=== PATIENT | female | born 1955 | race Caucasian/White ===

== ENCOUNTER 2017-07-11 12:08 | Inpatient (IN) | payer MEDICARE, MEDICAID ==
[~2017-07-11 12:08] MED LIST: CEFAZOLIN 1 GM INJ
[2017-07-11] MEDS ORDERED: MIDAZOLAM 1 MG/ML 2 ML INJ ×2 (14:42→14:56)
[2017-07-11] MEDS ORDERED: SUCCINYLCHOLINE CHLORIDE 100 MG/5 ML SYG IV (14:45)
[2017-07-11] MEDS ORDERED: LIDOCAINE 2% (SDV) 5 ML INJ (14:45)
[2017-07-11] MEDS ORDERED: ROCURONIUM 50 MG INJ (14:45)
[2017-07-11] MEDS ORDERED: PROPOFOL 20 ML (14:45)
[2017-07-11] MEDS ORDERED: ONDANSETRON 4 MG INJ (15:45)
[2017-07-11] MEDS ORDERED: FAMOTIDINE 20 MG INJ (15:45)
[2017-07-11] MEDS ORDERED: DEXAMETHASONE 4 MG/ML 1 ML INJ (15:45)
[2017-07-11] MEDS ORDERED: EPHEDrine SULFATE 50 MG/5 ML SYG (15:51)
[2017-07-11] MEDS ORDERED: NALOXONE (0.4 MG/ML) INJ IV (16:00)
[2017-07-11] MEDS ORDERED: LABETALOL HCL 20MG INJ (16:00)
[2017-07-11] MEDS ORDERED: hydrALAzine 20 MG INJ (16:07)
[2017-07-11] MEDS: CEFAZOLIN 1 GM INJ (16:43)
[2017-07-11] MEDS: GELATIN SIZE 100 SPONGE ×2 (16:44)
[2017-07-11] MEDS: HEPARIN 1000 UNITS/ML 10 ML INJ (16:44)
[2017-07-11] MEDS: THROMBIN 5000 UNIT VIAL ×2 (16:45)
[2017-07-11] MEDS ORDERED: HYDROmorphONE 2 MG/ML SYG (17:07)
[2017-07-11] MEDS ORDERED: SUGAMMADEX SODIUM 200 MG/2 ML VIAL IV ×2 (17:32→17:40)
[2017-07-11] MEDS ORDERED: HYDROmorphONE (0.2 MG/ML) 10ML SYG IV ×3 (18:12→18:30)
[2017-07-11] MEDS ORDERED: PROCHLORPERAZINE 10 MG INJ IV (18:30)
[2017-07-11] MEDS ORDERED: ONDANSETRON 4 MG INJ IV (18:30)
[2017-07-11] MEDS ORDERED: FENTAnyl 50 MCG/ML VIAL IV ×3 (18:30)
[2017-07-11] MEDS ORDERED: MEPERIDINE 25 MG INJ IV (18:30)
[2017-07-11] MEDS ORDERED: DIPHENHYDRAMINE 50 MG INJ IV (18:30)
[2017-07-11] MEDS ORDERED: MIDAZOLAM 1 MG/ML 2 ML INJ IV (18:30)
[2017-07-11] MEDS: HYDROmorphONE (0.2 MG/ML) 10ML SYG IV (18:36)
[2017-07-11] MEDS: HYDROmorphONE 0.2 MG/ML PCA IV (18:40)
[2017-07-11 19:14] LABS: ADD UMIC YES; UR ASCORBIC ACID NEGATIVE (NEGATIVE); UR BILIRUBIN (Dip) NEGATIVE (NEGATIVE); UR BLOOD (Dip) NEGATIVE (NEGATIVE); UR CLARITY SLIGHTLY CLOUDY (CLEAR); UR COLOR YELLOW (YELLOW); UR GLUCOSE (Dip) NEGATIVE (NEGATIVE); UR KETONES (Dip) NEGATIVE (NEGATIVE); UR LEUKOCYTE ESTERASE (Dip) NEGATIVE Leu/ul (NEGATIVE); UR NITRITE (Dip) NEGATIVE (NEGATIVE); UR RBC 9 /HPF (0-5); UR SPECIFIC GRAVITY (Dip) 1.019 (1.003-1.030); UR TOTAL PROTEIN (Dip) 2+ mg/dl (NEGATIVE); UR UROBILINOGEN (Dip) NEGATIVE (NEGATIVE); UR WBC 2 /HPF (0-5)
[2017-07-11] MEDS: CEFAZOLIN 1 GM/50 ML (PMX) 50 ML IVPB (23:07)
[2017-07-11] MEDS: LORAZEPAM 1 MG TAB PO (23:08)
[2017-07-12] MEDS: CEFAZOLIN 1 GM/50 ML (PMX) 50 ML IVPB ×4 (05:55→18:26)
[2017-07-12] MEDS: PANTOPRAZOLE (EC) 40 MG TAB PO (05:55)
[2017-07-12] MEDS: HYDROmorphONE 0.2 MG/ML PCA IV ×3 (06:44→19:45)
[2017-07-12] MEDS ORDERED: CEFAZOLIN 1 GM INJ (07:00)
[2017-07-12] MEDS ORDERED: SUCCINYLCHOLINE CHLORIDE 100 MG/5 ML SYG IV (07:00)
[2017-07-12 08:51] LABS: ADD MAN DIFF? NO
[2017-07-12 08:57] LABS: WHITE BLOOD COUNT 12.8 10^3/ul (4.8-10.8)
[2017-07-12 08:57] LABS: ABNORMAL IP MESSAGE 1; BASOPHILS % 0.2 % (0.0-2.0); EOSINOPHILS % 0.2 % (0.0-7.0); HEMATOCRIT 37.7 % (37.0-47.0); HEMOGLOBIN 12.9 g/dl (12.0-16.0); LYMPHOCYTES # 1.2 10^3/ul (0.8-2.9); LYMPHOCYTES % 9.2 % (15.0-51.0); MEAN CORPUSCULAR HEMOGLOBIN 33.2 pg (29.0-33.0); MEAN CORPUSCULAR HGB CONC 34.2 g/dl (32.0-37.0); MEAN CORPUSCULAR VOLUME 96.9 fl (82.0-101.0); MEAN PLATELET VOLUME 9.7 fl (7.4-10.4); MONOCYTE # 1.8 10^3/ul (0.3-0.9); NEUTROPHIL # 9.7 10^3/ul (1.6-7.5); NEUTROPHILS % 76.1 % (39.0-77.0); PLATELET COUNT 315 10^3/UL (140-415); RED BLOOD COUNT 3.89 10^6/ul (4.20-5.40); RED CELL DISTRIBUTION WIDTH 14.2 % (11.5-14.5)
[2017-07-12] MEDS: HYDROCHLOROTHIAZIDE 25 MG TAB PO (09:00)
[2017-07-12] MEDS: SERTRALINE 50 MG TAB PO (09:00)
[2017-07-12 09:05] LABS: POSITIVE DIFF @See below
[2017-07-12 09:18] LABS: ANION GAP 15 (8-16); BLOOD UREA NITROGEN 18 mg/dl (7-20); CALCIUM 8.2 mg/dl (8.4-10.2); CARBON DIOXIDE 29 mmol/L (21-31); CHLORIDE 106 mmol/L (97-110); CREATININE 0.55 mg/dl (0.44-1.00); GLUCOSE 102 mg/dl (70-220); POTASSIUM 3.1 mmol/L (3.5-5.1); SODIUM 147 mmol/L (135-144)
[2017-07-12] MEDS ORDERED: ROPIVACAINE 0.5 % 30 ML VIAL (10:31)
[2017-07-12] MEDS ORDERED: POLYMYXIN/BACITRACIN 1L IRRIG (11:01)
[2017-07-12] MEDS ORDERED: PROPOFOL 20 ML (12:00)
[2017-07-12] MEDS ORDERED: MIDAZOLAM 1 MG/ML 2 ML INJ (12:00)
[2017-07-12] MEDS ORDERED: ROCURONIUM 50 MG INJ (12:00)
[2017-07-12] MEDS ORDERED: LIDOCAINE 1% (MDV) 20 ML INJ (12:01)
[2017-07-12] MEDS ORDERED: PHENYLephrine (100 MCG/ML) 5ML SYG (12:19)
[2017-07-12] MEDS: ROPIVACAINE 0.5 % 30 ML VIAL (12:56)
[2017-07-12] MEDS: THROMBIN 5000 UNIT VIAL (12:56)
[2017-07-12] MEDS: GELATIN SIZE 100 SPONGE (12:56)
[2017-07-12] MEDS: POLYMYXIN/BACITRACIN 1L IRRIG (12:56)
[2017-07-12] MEDS ORDERED: FAMOTIDINE 20 MG INJ (13:26)
[2017-07-12] MEDS ORDERED: ONDANSETRON 4 MG INJ (13:26)
[2017-07-12] MEDS ORDERED: DEXAMETHASONE 4 MG/ML 1 ML INJ (13:26)
[2017-07-12] MEDS ORDERED: LABETALOL HCL 20MG INJ (13:34)
[2017-07-12] MEDS ORDERED: SUGAMMADEX SODIUM 200 MG/2 ML VIAL IV (13:40)
[2017-07-12] MEDS ORDERED: HYDROmorphONE (0.2 MG/ML) 10ML SYG IV ×2 (14:00)
[2017-07-12] MEDS ORDERED: LORAZEPAM 2 MG INJ (14:10)
[2017-07-12] MEDS: HYDROmorphONE (0.2 MG/ML) 10ML SYG IV (14:12)
[2017-07-12] MEDS: LORAZEPAM 2 MG INJ IV (14:20)
[2017-07-12] MEDS: LORAZEPAM 1 MG TAB PO (20:37)
[2017-07-12] MEDS: RISPERIDONE 2 MG TAB PO ×2 (20:40→21:18)
[2017-07-13] MEDS: LORAZEPAM 1 MG TAB PO ×3 (01:47→16:15)
[2017-07-13] MEDS: PANTOPRAZOLE (EC) 40 MG TAB PO (06:10)
[2017-07-13 07:45] LABS: ADD MAN DIFF? NO
[2017-07-13 07:52] LABS: WHITE BLOOD COUNT 10.4 10^3/ul (4.8-10.8)
[2017-07-13 07:52] LABS: BASOPHILS % 0.2 % (0.0-2.0); EOSINOPHILS % 0.3 % (0.0-7.0); HEMATOCRIT 31.7 % (37.0-47.0); HEMOGLOBIN 10.6 g/dl (12.0-16.0); LYMPHOCYTES # 1.1 10^3/ul (0.8-2.9); LYMPHOCYTES % 10.6 % (15.0-51.0); MEAN CORPUSCULAR HEMOGLOBIN 32.7 pg (29.0-33.0); MEAN CORPUSCULAR HGB CONC 33.4 g/dl (32.0-37.0); MEAN CORPUSCULAR VOLUME 97.8 fl (82.0-101.0); MEAN PLATELET VOLUME 10.2 fl (7.4-10.4); MONOCYTE # 1.5 10^3/ul (0.3-0.9); MONOCYTES % 14.4 % (0.0-11.0); NEUTROPHIL # 7.7 10^3/ul (1.6-7.5); NEUTROPHILS % 74.1 % (39.0-77.0); PLATELET COUNT 201 10^3/UL (140-415); RED BLOOD COUNT 3.24 10^6/ul (4.20-5.40); RED CELL DISTRIBUTION WIDTH 14.4 % (11.5-14.5)
[2017-07-13] MEDS: HYDROCHLOROTHIAZIDE 25 MG TAB PO (08:08)
[2017-07-13] MEDS: HYDROCODONE/APAP (5/325) TAB PO ×3 (08:08→23:15)
[2017-07-13] MEDS: SERTRALINE 50 MG TAB PO (08:08)
[2017-07-13] MEDS: RISPERIDONE 2 MG TAB PO (08:09)
[2017-07-13 08:18] LABS: ANION GAP 12 (8-16); BLOOD UREA NITROGEN 13 mg/dl (7-20); CALCIUM 8.1 mg/dl (8.4-10.2); CARBON DIOXIDE 29 mmol/L (21-31); CHLORIDE 107 mmol/L (97-110); GLUCOSE 117 mg/dl (70-220); POTASSIUM 3.3 mmol/L (3.5-5.1); SODIUM 145 mmol/L (135-144)
[2017-07-13] MEDS: morphine 2 MG INJ IV ×3 (14:14→20:59)
[2017-07-13] MEDS: POTASSIUM CHLORIDE (SR) 20 MEQ TAB PO (16:14)
[2017-07-14] MEDS: morphine 2 MG INJ IV ×5 (00:24→18:34)
[2017-07-14] MEDS ORDERED: PANTOPRAZOLE (EC) 40 MG TAB PO (06:00)
[2017-07-14] MEDS: PANTOPRAZOLE (EC) 40 MG TAB PO (06:35)
[2017-07-14] MEDS: HYDROCODONE/APAP (5/325) TAB PO ×2 (06:42→15:14)
[2017-07-14 07:27] LABS: ADD MAN DIFF? NO
[2017-07-14 07:41] LABS: BASOPHILS % 0.3 % (0.0-2.0); EOSINOPHILS # 0.1 10^3/ul (0.0-0.5); EOSINOPHILS % 0.6 % (0.0-7.0); HEMATOCRIT 28.6 % (37.0-47.0); HEMOGLOBIN 9.9 g/dl (12.0-16.0); LYMPHOCYTES % 9.1 % (15.0-51.0); MEAN CORPUSCULAR HEMOGLOBIN 33.1 pg (29.0-33.0); MEAN CORPUSCULAR HGB CONC 34.6 g/dl (32.0-37.0); MEAN CORPUSCULAR VOLUME 95.7 fl (82.0-101.0); MEAN PLATELET VOLUME 9.7 fl (7.4-10.4); MONOCYTE # 1.2 10^3/ul (0.3-0.9); MONOCYTES % 11.3 % (0.0-11.0); NEUTROPHIL # 8.5 10^3/ul (1.6-7.5); NEUTROPHILS % 78.2 % (39.0-77.0); PLATELET COUNT 210 10^3/UL (140-415); RED BLOOD COUNT 2.99 10^6/ul (4.20-5.40)
[2017-07-14 07:41] LABS: WHITE BLOOD COUNT 10.8 10^3/ul (4.8-10.8)
[2017-07-14 08:14] LABS: ALANINE AMINOTRANSFERASE 31 IU/L (13-69); ALBUMIN 3.3 g/dl (3.3-4.9); ALBUMIN/GLOBULIN RATIO 1.22; ALKALINE PHOSPHATASE 58 IU/L (42-121); ANION GAP 14 (8-16); ASPARTATE AMINO TRANSFERASE 42 IU/L (15-46); BILIRUBIN,INDIRECT 0.2 mg/dl (0-1.1); BILIRUBIN,TOTAL 0.2 mg/dl (0.2-1.3); BLOOD UREA NITROGEN 10 mg/dl (7-20); CALCIUM 8.2 mg/dl (8.4-10.2); CARBON DIOXIDE 30 mmol/L (21-31); CHLORIDE 104 mmol/L (97-110); CREATININE 0.52 mg/dl (0.44-1.00); GLUCOSE 107 mg/dl (70-220); POTASSIUM 3.2 mmol/L (3.5-5.1); SODIUM 145 mmol/L (135-144)
[2017-07-14] MEDS: NICOTINE (21 MG/24 HR) PATCH TRANSDERM (09:09)
[2017-07-14] MEDS: SERTRALINE 50 MG TAB PO (09:09)
[2017-07-14] MEDS: RISPERIDONE 1 MG TAB PO (09:09)
[2017-07-14] MEDS: HYDROCHLOROTHIAZIDE 25 MG TAB PO (09:10)
[2017-07-14] MEDS: POTASSIUM CHLORIDE (SR) 20 MEQ TAB PO (10:12)
[2017-07-14] MEDS: LORAZEPAM 1 MG TAB PO ×2 (10:15→17:19)
== END 2017-07-14 18:50 | DRG 455 ==
LOC: VRC 07-14 18:15 → REC 12:08 → TEL 20:23
PROC: 0SG10A0 Fusion of 2 or more Lumbar Vertebral Joints with Interbody Fusion Device, Anterior Approach, Anterior Column, Open Approach (ICD-10-PCS; principal; 2017-07-11 14:00)
PROC: 0SG30A0 Fusion of Lumbosacral Joint with Interbody Fusion Device, Anterior Approach, Anterior Column, Open Approach (ICD-10-PCS; 2017-07-11 14:00)
PROC: 0SB20ZZ Excision of Lumbar Vertebral Disc, Open Approach (ICD-10-PCS; 2017-07-11 14:00)
PROC: 0SB40ZZ Excision of Lumbosacral Disc, Open Approach (ICD-10-PCS; 2017-07-11 14:00)
PROC: 0SG10Z1 (ICD-10-PCS; 2017-07-11 14:48)
PROC: 0SG30Z1 (ICD-10-PCS; 2017-07-11 14:48)
DX: M47.26 Other spondylosis with radiculopathy, lumbar region (principal); I10 Essential (primary) hypertension; M51.17 Intervertebral disc disorders with radiculopathy, lumbosacral region; F41.9 Anxiety disorder, unspecified; Z87.11 Personal history of peptic ulcer disease; F17.210 Nicotine dependence, cigarettes, uncomplicated; E78.5 Hyperlipidemia, unspecified; G89.29 Other chronic pain; R41.0 Disorientation, unspecified; Y92.239 Unspecified place in hospital as the place of occurrence of the external cause; T40.2X5A Adverse effect of other opioids, initial encounter
CPT/HCPCS: 72100; 72110; 72131; 80048; 80053; 81001; 85025; 86850; 86900; 86901; 86920; 87086; 88304; 97116; 97163; 97530

== ENCOUNTER 2017-07-14 18:45 | Inpatient (IN) | payer MEDICARE, OTHER, MEDICAID ==
[2017-07-14] MEDS ORDERED: NALOXONE (0.4 MG/ML) INJ IV (20:30)
[2017-07-14] MEDS: morphine 2 MG INJ IV (21:20)
[2017-07-15 00:10] LABS: ADD UMIC YES; UR ASCORBIC ACID NEGATIVE (NEGATIVE); UR BILIRUBIN (Dip) NEGATIVE (NEGATIVE); UR BLOOD (Dip) 1+ mg/dL (NEGATIVE); UR BUDDING YEAST FEW /HPF (NONE SEEN); UR CLARITY CLOUDY (CLEAR); UR COLOR YELLOW (YELLOW); UR GLUCOSE (Dip) NEGATIVE (NEGATIVE); UR KETONES (Dip) NEGATIVE (NEGATIVE); UR LEUKOCYTE ESTERASE (Dip) 3+ Leu/ul (NEGATIVE); UR MUCUS FEW /HPF (NONE SEEN); UR NITRITE (Dip) NEGATIVE (NEGATIVE); UR RBC 13 /HPF (0-5); UR SPECIFIC GRAVITY (Dip) 1.015 (1.003-1.030); UR SQUAMOUS EPITHELIAL CELL MANY /HPF (FEW); UR TOTAL PROTEIN (Dip) 1+ mg/dl (NEGATIVE); UR UROBILINOGEN (Dip) NEGATIVE (NEGATIVE); UR WBC 37 /HPF (0-5)
[2017-07-15] MEDS ORDERED: BISACODYL 10 MG SUPP PR (01:00)
[2017-07-15] MEDS: morphine 2 MG INJ IV ×2 (01:50→05:37)
[2017-07-15] MEDS: MAGNESIUM HYDROXIDE 30ML CUP PO (01:50)
[2017-07-15] MEDS: PANTOPRAZOLE (EC) 40 MG TAB PO (05:31)
[2017-07-15 06:34] LABS: ADD MAN DIFF? NO
[2017-07-15 06:37] LABS: WHITE BLOOD COUNT 8.7 10^3/ul (4.8-10.8)
[2017-07-15 06:37] LABS: BASOPHILS % 0.2 % (0.0-2.0); EOSINOPHILS # 0.2 10^3/ul (0.0-0.5); HEMATOCRIT 28.8 % (37.0-47.0); HEMOGLOBIN 9.9 g/dl (12.0-16.0); LYMPHOCYTES # 1.2 10^3/ul (0.8-2.9); LYMPHOCYTES % 13.8 % (15.0-51.0); MEAN CORPUSCULAR HEMOGLOBIN 32.9 pg (29.0-33.0); MEAN CORPUSCULAR HGB CONC 34.4 g/dl (32.0-37.0); MEAN CORPUSCULAR VOLUME 95.7 fl (82.0-101.0); MEAN PLATELET VOLUME 9.4 fl (7.4-10.4); MONOCYTES % 11.4 % (0.0-11.0); NEUTROPHIL # 6.3 10^3/ul (1.6-7.5); NEUTROPHILS % 72.4 % (39.0-77.0); PLATELET COUNT 234 10^3/UL (140-415); RED BLOOD COUNT 3.01 10^6/ul (4.20-5.40); RED CELL DISTRIBUTION WIDTH 13.9 % (11.5-14.5)
[2017-07-15 07:16] LABS: ALANINE AMINOTRANSFERASE 30 IU/L (13-69); ALBUMIN 3.1 g/dl (3.3-4.9); ALBUMIN/GLOBULIN RATIO 1.06; ALKALINE PHOSPHATASE 61 IU/L (42-121); ANION GAP 10 (8-16); ASPARTATE AMINO TRANSFERASE 34 IU/L (15-46); BILIRUBIN,INDIRECT 0.3 mg/dl (0-1.1); BILIRUBIN,TOTAL 0.3 mg/dl (0.2-1.3); BLOOD UREA NITROGEN 11 mg/dl (7-20); CALCIUM 8.3 mg/dl (8.4-10.2); CARBON DIOXIDE 31 mmol/L (21-31); CHLORIDE 105 mmol/L (97-110); CREATININE 0.53 mg/dl (0.44-1.00); GLUCOSE 104 mg/dl (70-220); POTASSIUM 3.6 mmol/L (3.5-5.1); SODIUM 142 mmol/L (135-144)
[2017-07-15] MEDS: RISPERIDONE 1 MG TAB PO (08:23)
[2017-07-15] MEDS: NICOTINE (21 MG/24 HR) PATCH TRANSDERM (08:23)
[2017-07-15] MEDS: HYDROCODONE/APAP (5/325) TAB PO (08:24)
[2017-07-15] MEDS: HYDROCHLOROTHIAZIDE 25 MG TAB PO (08:24)
[2017-07-15] MEDS: LORAZEPAM 1 MG TAB PO ×3 (08:24→21:42)
[2017-07-15] MEDS: SERTRALINE 50 MG TAB PO (08:24)
[2017-07-15] MEDS: DOCUSATE SODIUM 100 MG CAP PO ×2 (08:24→21:41)
[2017-07-15] MEDS: FLUCONAZOLE 200 MG TAB PO (09:34)
[2017-07-15] MEDS: LEVOFLOXACIN 500 MG TAB PO (09:34)
[2017-07-15] MEDS: POTASSIUM CHLORIDE (SR) 20 MEQ TAB PO (10:05)
[2017-07-15] MEDS: CALCIUM CARBONATE 500 MG CHEW TAB PO (12:45)
[2017-07-15] MEDS: LACTULOSE 30ML CUP PO (13:22)
[2017-07-15] MEDS: HYDROCODONE/APAP (10/325) TAB PO ×2 (13:22→18:08)
[2017-07-15] MEDS: SENNA TAB PO (21:41)
[2017-07-16] MEDS: LEVOFLOXACIN 500 MG TAB PO (06:25)
[2017-07-16] MEDS: HYDROCODONE/APAP (10/325) TAB PO ×4 (06:25→22:08)
[2017-07-16] MEDS: PANTOPRAZOLE (EC) 40 MG TAB PO (06:25)
[2017-07-16] MEDS: NICOTINE (21 MG/24 HR) PATCH TRANSDERM (08:54)
[2017-07-16] MEDS: HYDROCHLOROTHIAZIDE 25 MG TAB PO (08:55)
[2017-07-16] MEDS: LORAZEPAM 1 MG TAB PO ×3 (08:55→20:37)
[2017-07-16] MEDS: RISPERIDONE 1 MG TAB PO (08:55)
[2017-07-16] MEDS: DOCUSATE SODIUM 100 MG CAP PO ×2 (08:55→21:00)
[2017-07-16] MEDS: FLUCONAZOLE 100 MG TAB PO (08:55)
[2017-07-16] MEDS: SERTRALINE 50 MG TAB PO (08:55)
[2017-07-16] MEDS: SENNA TAB PO (21:00)
[2017-07-17] MEDS: HYDROCODONE/APAP (10/325) TAB PO ×4 (02:44→19:49)
[2017-07-17] MEDS: LEVOFLOXACIN 500 MG TAB PO (06:22)
[2017-07-17] MEDS: PANTOPRAZOLE (EC) 40 MG TAB PO (06:22)
[2017-07-17] MEDS: LORAZEPAM 1 MG TAB PO ×3 (06:27→17:49)
[2017-07-17] MEDS: FLUCONAZOLE 100 MG TAB PO (08:49)
[2017-07-17] MEDS: DOCUSATE SODIUM 100 MG CAP PO ×2 (08:49→21:00)
[2017-07-17] MEDS: RISPERIDONE 1 MG TAB PO (08:49)
[2017-07-17] MEDS: SERTRALINE 50 MG TAB PO (08:50)
[2017-07-17] MEDS: HYDROCHLOROTHIAZIDE 25 MG TAB PO (08:50)
[2017-07-17] MEDS: NICOTINE (21 MG/24 HR) PATCH TRANSDERM (08:54)
[2017-07-17] MEDS: HYDROCODONE/APAP (5/325) TAB PO (12:39)
[2017-07-17] MEDS: SENNA TAB PO (21:00)
[2017-07-18] MEDS: LORAZEPAM 1 MG TAB PO ×3 (00:15→16:15)
[2017-07-18] MEDS: HYDROCODONE/APAP (10/325) TAB PO ×5 (03:58→21:18)
[2017-07-18] MEDS: PANTOPRAZOLE (EC) 40 MG TAB PO (06:46)
[2017-07-18] MEDS: LEVOFLOXACIN 500 MG TAB PO (06:46)
[2017-07-18] MEDS: RISPERIDONE 1 MG TAB PO (08:40)
[2017-07-18] MEDS: FLUCONAZOLE 100 MG TAB PO (08:41)
[2017-07-18] MEDS: SERTRALINE 50 MG TAB PO (08:41)
[2017-07-18] MEDS: NICOTINE (21 MG/24 HR) PATCH TRANSDERM (08:41)
[2017-07-18] MEDS: HYDROCHLOROTHIAZIDE 25 MG TAB PO (08:41)
[2017-07-18] MEDS: DOCUSATE SODIUM 100 MG CAP PO ×2 (08:42→20:14)
[2017-07-18] MEDS: SENNA TAB PO (20:14)
[2017-07-18] MEDS: ZOLPIDEM 5 MG TAB PO (21:59)
[2017-07-19] MEDS: HYDROCODONE/APAP (10/325) TAB PO ×5 (01:47→19:09)
[2017-07-19] MEDS: PANTOPRAZOLE (EC) 40 MG TAB PO (06:12)
[2017-07-19] MEDS: LEVOFLOXACIN 500 MG TAB PO (06:12)
[2017-07-19] MEDS: LORAZEPAM 1 MG TAB PO ×3 (08:54→16:42)
[2017-07-19] MEDS: SERTRALINE 50 MG TAB PO (08:54)
[2017-07-19] MEDS: DOCUSATE SODIUM 100 MG CAP PO ×2 (08:54→20:18)
[2017-07-19] MEDS: NICOTINE (21 MG/24 HR) PATCH TRANSDERM (08:55)
[2017-07-19] MEDS: HYDROCHLOROTHIAZIDE 25 MG TAB PO (08:55)
[2017-07-19] MEDS: RISPERIDONE 1 MG TAB PO (09:03)
[2017-07-19] MEDS: SENNA TAB PO (20:18)
[2017-07-20] MEDS: HYDROCODONE/APAP (10/325) TAB PO ×5 (00:16→20:32)
[2017-07-20] MEDS: ZOLPIDEM 5 MG TAB PO ×2 (00:16→21:49)
[2017-07-20] MEDS: LEVOFLOXACIN 500 MG TAB PO (06:17)
[2017-07-20] MEDS: PANTOPRAZOLE (EC) 40 MG TAB PO (06:17)
[2017-07-20 07:42] LABS: ADD MAN DIFF? NO
[2017-07-20 07:55] LABS: BASOPHILS % 0.5 % (0.0-2.0); EOSINOPHILS # 0.2 10^3/ul (0.0-0.5); EOSINOPHILS % 2.5 % (0.0-7.0); HEMATOCRIT 30.3 % (37.0-47.0); HEMOGLOBIN 10.3 g/dl (12.0-16.0); LYMPHOCYTES # 1.5 10^3/ul (0.8-2.9); LYMPHOCYTES % 18.4 % (15.0-51.0); MEAN CORPUSCULAR HEMOGLOBIN 32.8 pg (29.0-33.0); MEAN CORPUSCULAR VOLUME 96.5 fl (82.0-101.0); MEAN PLATELET VOLUME 9.3 fl (7.4-10.4); MONOCYTE # 0.9 10^3/ul (0.3-0.9); MONOCYTES % 10.6 % (0.0-11.0); NEUTROPHIL # 5.5 10^3/ul (1.6-7.5); NEUTROPHILS % 67.4 % (39.0-77.0); PLATELET COUNT 415 10^3/UL (140-415); RED BLOOD COUNT 3.14 10^6/ul (4.20-5.40); RED CELL DISTRIBUTION WIDTH 13.9 % (11.5-14.5)
[2017-07-20 07:55] LABS: WHITE BLOOD COUNT 8.1 10^3/ul (4.8-10.8)
[2017-07-20 08:15] LABS: ANION GAP 11 (8-16); BLOOD UREA NITROGEN 22 mg/dl (7-20); CARBON DIOXIDE 32 mmol/L (21-31); CHLORIDE 104 mmol/L (97-110); CREATININE 0.59 mg/dl (0.44-1.00); GLUCOSE 93 mg/dl (70-220); SODIUM 143 mmol/L (135-144)
[2017-07-20] MEDS: NICOTINE (21 MG/24 HR) PATCH TRANSDERM (08:42)
[2017-07-20] MEDS: HYDROCHLOROTHIAZIDE 25 MG TAB PO (08:42)
[2017-07-20] MEDS: LORAZEPAM 1 MG TAB PO ×3 (08:42→20:38)
[2017-07-20] MEDS: RISPERIDONE 1 MG TAB PO (08:43)
[2017-07-20] MEDS: DOCUSATE SODIUM 100 MG CAP PO ×2 (08:43→20:33)
[2017-07-20] MEDS: SERTRALINE 50 MG TAB PO (08:43)
[2017-07-20] MEDS: SENNA TAB PO (20:34)
[2017-07-21] MEDS: HYDROCODONE/APAP (10/325) TAB PO ×5 (01:08→22:01)
[2017-07-21] MEDS: LEVOFLOXACIN 500 MG TAB PO (06:07)
[2017-07-21] MEDS: PANTOPRAZOLE (EC) 40 MG TAB PO (06:07)
[2017-07-21] MEDS: LORAZEPAM 1 MG TAB PO ×3 (09:08→20:05)
[2017-07-21] MEDS: DOCUSATE SODIUM 100 MG CAP PO ×2 (09:08→20:05)
[2017-07-21] MEDS: HYDROCHLOROTHIAZIDE 25 MG TAB PO (09:09)
[2017-07-21] MEDS: RISPERIDONE 1 MG TAB PO (09:09)
[2017-07-21] MEDS: SERTRALINE 50 MG TAB PO (09:09)
[2017-07-21] MEDS: NICOTINE (21 MG/24 HR) PATCH TRANSDERM (10:23)
[2017-07-21] MEDS: HYDROCODONE/APAP (5/325) TAB PO (14:07)
[2017-07-21] MEDS: SENNA TAB PO (20:05)
[2017-07-21] MEDS: ZOLPIDEM 5 MG TAB PO (22:01)
[2017-07-22] MEDS: HYDROCODONE/APAP (10/325) TAB PO ×6 (02:39→23:15)
[2017-07-22] MEDS: PANTOPRAZOLE (EC) 40 MG TAB PO (06:47)
[2017-07-22] MEDS: DOCUSATE SODIUM 100 MG CAP PO ×2 (08:45→20:19)
[2017-07-22] MEDS: HYDROCHLOROTHIAZIDE 25 MG TAB PO (08:45)
[2017-07-22] MEDS: SERTRALINE 50 MG TAB PO (08:46)
[2017-07-22] MEDS: RISPERIDONE 1 MG TAB PO (08:46)
[2017-07-22] MEDS: LORAZEPAM 1 MG TAB PO ×3 (08:46→20:20)
[2017-07-22] MEDS: NICOTINE (21 MG/24 HR) PATCH TRANSDERM (08:47)
[2017-07-22 08:57] LABS: ADD MAN DIFF? NO
[2017-07-22 08:58] LABS: WHITE BLOOD COUNT 7.9 10^3/ul (4.8-10.8)
[2017-07-22 08:58] LABS: BASOPHILS % 0.5 % (0.0-2.0); EOSINOPHILS # 0.2 10^3/ul (0.0-0.5); EOSINOPHILS % 2.3 % (0.0-7.0); HEMATOCRIT 35.4 % (37.0-47.0); HEMOGLOBIN 11.8 g/dl (12.0-16.0); LYMPHOCYTES # 1.4 10^3/ul (0.8-2.9); MEAN CORPUSCULAR HEMOGLOBIN 32.2 pg (29.0-33.0); MEAN CORPUSCULAR HGB CONC 33.3 g/dl (32.0-37.0); MEAN CORPUSCULAR VOLUME 96.5 fl (82.0-101.0); MONOCYTE # 0.7 10^3/ul (0.3-0.9); MONOCYTES % 9.2 % (0.0-11.0); NEUTROPHIL # 5.5 10^3/ul (1.6-7.5); NEUTROPHILS % 69.5 % (39.0-77.0); PLATELET COUNT 562 10^3/UL (140-415); RED BLOOD COUNT 3.67 10^6/ul (4.20-5.40); RED CELL DISTRIBUTION WIDTH 13.7 % (11.5-14.5)
[2017-07-22 09:38] LABS: ANION GAP 13 (8-16); BLOOD UREA NITROGEN 27 mg/dl (7-20); CALCIUM 9.6 mg/dl (8.4-10.2); CARBON DIOXIDE 30 mmol/L (21-31); CHLORIDE 106 mmol/L (97-110); CREATININE 0.59 mg/dl (0.44-1.00); GLUCOSE 109 mg/dl (70-220); POTASSIUM 3.9 mmol/L (3.5-5.1); SODIUM 145 mmol/L (135-144)
[2017-07-22] MEDS: SENNA TAB PO (20:21)
[2017-07-22] MEDS: ZOLPIDEM 5 MG TAB PO (22:32)
[2017-07-23 06:40] LABS: ADD MAN DIFF? NO
[2017-07-23 06:49] LABS: BASOPHILS % 0.5 % (0.0-2.0); EOSINOPHILS # 0.2 10^3/ul (0.0-0.5); EOSINOPHILS % 2.6 % (0.0-7.0); HEMATOCRIT 32.3 % (37.0-47.0); HEMOGLOBIN 11.2 g/dl (12.0-16.0); LYMPHOCYTES # 1.5 10^3/ul (0.8-2.9); LYMPHOCYTES % 18.1 % (15.0-51.0); MEAN CORPUSCULAR HEMOGLOBIN 33.5 pg (29.0-33.0); MEAN CORPUSCULAR HGB CONC 34.7 g/dl (32.0-37.0); MEAN CORPUSCULAR VOLUME 96.7 fl (82.0-101.0); MONOCYTE # 0.9 10^3/ul (0.3-0.9); MONOCYTES % 10.5 % (0.0-11.0); NEUTROPHIL # 5.5 10^3/ul (1.6-7.5); NEUTROPHILS % 67.7 % (39.0-77.0); PLATELET COUNT 519 10^3/UL (140-415); RED BLOOD COUNT 3.34 10^6/ul (4.20-5.40); RED CELL DISTRIBUTION WIDTH 13.4 % (11.5-14.5)
[2017-07-23 06:49] LABS: WHITE BLOOD COUNT 8.1 10^3/ul (4.8-10.8)
[2017-07-23] MEDS: PANTOPRAZOLE (EC) 40 MG TAB PO (06:57)
[2017-07-23] MEDS: HYDROCODONE/APAP (10/325) TAB PO ×4 (07:06→19:45)
[2017-07-23] MEDS: NICOTINE (21 MG/24 HR) PATCH TRANSDERM (09:27)
[2017-07-23] MEDS: DOCUSATE SODIUM 100 MG CAP PO ×2 (09:28→21:22)
[2017-07-23] MEDS: SERTRALINE 50 MG TAB PO (09:28)
[2017-07-23] MEDS: HYDROCHLOROTHIAZIDE 25 MG TAB PO (09:29)
[2017-07-23] MEDS: RISPERIDONE 1 MG TAB PO (09:29)
[2017-07-23] MEDS: LORAZEPAM 1 MG TAB PO ×2 (09:31→17:10)
[2017-07-23] MEDS: ZOLPIDEM 5 MG TAB PO (21:21)
[2017-07-23] MEDS: SENNA TAB PO (21:22)
[2017-07-24] MEDS: HYDROCODONE/APAP (10/325) TAB PO ×6 (02:20→22:21)
[2017-07-24] MEDS: PANTOPRAZOLE (EC) 40 MG TAB PO (06:20)
[2017-07-24 07:38] LABS: ADD MAN DIFF? NO
[2017-07-24 07:54] LABS: BASOPHILS % 0.4 % (0.0-2.0); EOSINOPHILS # 0.2 10^3/ul (0.0-0.5); EOSINOPHILS % 1.6 % (0.0-7.0); HEMATOCRIT 33.2 % (37.0-47.0); HEMOGLOBIN 11.2 g/dl (12.0-16.0); LYMPHOCYTES # 1.4 10^3/ul (0.8-2.9); MEAN CORPUSCULAR HEMOGLOBIN 32.2 pg (29.0-33.0); MEAN CORPUSCULAR HGB CONC 33.7 g/dl (32.0-37.0); MEAN CORPUSCULAR VOLUME 95.4 fl (82.0-101.0); MEAN PLATELET VOLUME 9.1 fl (7.4-10.4); MONOCYTE # 0.7 10^3/ul (0.3-0.9); MONOCYTES % 7.3 % (0.0-11.0); NEUTROPHIL # 7.4 10^3/ul (1.6-7.5); NEUTROPHILS % 76.1 % (39.0-77.0); PLATELET COUNT 566 10^3/UL (140-415); RED BLOOD COUNT 3.48 10^6/ul (4.20-5.40); RED CELL DISTRIBUTION WIDTH 13.5 % (11.5-14.5)
[2017-07-24 07:54] LABS: WHITE BLOOD COUNT 9.8 10^3/ul (4.8-10.8)
[2017-07-24] MEDS: LORAZEPAM 1 MG TAB PO ×3 (09:00→20:40)
[2017-07-24] MEDS: SERTRALINE 50 MG TAB PO (09:47)
[2017-07-24] MEDS: DOCUSATE SODIUM 100 MG CAP PO ×2 (09:47→20:43)
[2017-07-24] MEDS: RISPERIDONE 1 MG TAB PO (09:47)
[2017-07-24] MEDS: NICOTINE (21 MG/24 HR) PATCH TRANSDERM (09:48)
[2017-07-24] MEDS: HYDROCHLOROTHIAZIDE 25 MG TAB PO (09:48)
[2017-07-24] MEDS: SENNA TAB PO (20:43)
[2017-07-24] MEDS: ZOLPIDEM 5 MG TAB PO (22:06)
[2017-07-25] MEDS: PANTOPRAZOLE (EC) 40 MG TAB PO (05:21)
[2017-07-25] MEDS: HYDROCODONE/APAP (10/325) TAB PO ×5 (05:21→22:29)
[2017-07-25] MEDS: HYDROCHLOROTHIAZIDE 25 MG TAB PO (08:45)
[2017-07-25] MEDS: RISPERIDONE 1 MG TAB PO (08:45)
[2017-07-25] MEDS: LORAZEPAM 1 MG TAB PO ×3 (08:45→20:35)
[2017-07-25] MEDS: SERTRALINE 50 MG TAB PO (08:45)
[2017-07-25] MEDS: DOCUSATE SODIUM 100 MG CAP PO ×2 (08:45→20:35)
[2017-07-25] MEDS: NICOTINE (21 MG/24 HR) PATCH TRANSDERM (09:00)
[2017-07-25] MEDS: SENNA TAB PO (20:35)
[2017-07-25] MEDS: ZOLPIDEM 5 MG TAB PO (22:29)
[2017-07-26] MEDS: HYDROCODONE/APAP (10/325) TAB PO ×5 (04:11→21:29)
[2017-07-26] MEDS: PANTOPRAZOLE (EC) 40 MG TAB PO (06:34)
[2017-07-26] MEDS: RISPERIDONE 1 MG TAB PO (08:07)
[2017-07-26] MEDS: DOCUSATE SODIUM 100 MG CAP PO ×2 (08:07→21:28)
[2017-07-26] MEDS: HYDROCHLOROTHIAZIDE 25 MG TAB PO (08:07)
[2017-07-26] MEDS: SERTRALINE 50 MG TAB PO (08:08)
[2017-07-26] MEDS: LORAZEPAM 1 MG TAB PO ×3 (08:34→22:09)
[2017-07-26] MEDS: NICOTINE (21 MG/24 HR) PATCH TRANSDERM (12:10)
[2017-07-26] MEDS: MAGNESIUM HYDROXIDE 30ML CUP PO (17:42)
[2017-07-26] MEDS: SENNA TAB PO (21:28)
[2017-07-27] MEDS: HYDROCODONE/APAP (10/325) TAB PO ×2 (03:52→08:21)
[2017-07-27] MEDS: PANTOPRAZOLE (EC) 40 MG TAB PO (06:49)
[2017-07-27] MEDS: SERTRALINE 50 MG TAB PO (08:21)
[2017-07-27] MEDS: DOCUSATE SODIUM 100 MG CAP PO (08:22)
[2017-07-27] MEDS: RISPERIDONE 1 MG TAB PO (08:22)
[2017-07-27] MEDS: HYDROCHLOROTHIAZIDE 25 MG TAB PO (08:23)
[2017-07-27] MEDS: LORAZEPAM 1 MG TAB PO (08:25)
[2017-07-27] MEDS: NICOTINE (21 MG/24 HR) PATCH TRANSDERM (08:32)
== END 2017-07-27 11:45 | disposition home health service (06) | DRG 945 ==
LOC: VRC 18:45
PROC: F07Z9FZ Gait Training/Functional Ambulation Treatment using Assistive, Adaptive, Supportive or Protective Equipment (ICD-10-PCS; principal; 2017-07-14)
PROC: F07Z8FZ Transfer Training Treatment using Assistive, Adaptive, Supportive or Protective Equipment (ICD-10-PCS; 2017-07-14)
PROC: F07Z5FZ Bed Mobility Treatment using Assistive, Adaptive, Supportive or Protective Equipment (ICD-10-PCS; 2017-07-14)
PROC: F08Z2FZ Grooming/Personal Hygiene Treatment using Assistive, Adaptive, Supportive or Protective Equipment (ICD-10-PCS; 2017-07-14)
PROC: F08Z0FZ Bathing/Showering Techniques Treatment using Assistive, Adaptive, Supportive or Protective Equipment (ICD-10-PCS; 2017-07-14)
PROC: F08Z1FZ Dressing Techniques Treatment using Assistive, Adaptive, Supportive or Protective Equipment (ICD-10-PCS; 2017-07-14)
DX: G89.18 Other acute postprocedural pain (principal); B37.49 Other urogenital candidiasis; M54.5 Low back pain; R26.2 Difficulty in walking, not elsewhere classified; G89.29 Other chronic pain; Z98.1 Arthrodesis status; F41.9 Anxiety disorder, unspecified; R41.0 Disorientation, unspecified; E66.9 Obesity, unspecified; Z87.11 Personal history of peptic ulcer disease; I10 Essential (primary) hypertension; F17.210 Nicotine dependence, cigarettes, uncomplicated; B96.20 Unspecified Escherichia coli [E. coli] as the cause of diseases classified elsewhere; D47.3 Essential (hemorrhagic) thrombocythemia; T40.2X5A Adverse effect of other opioids, initial encounter; Y92.230 Patient room in hospital as the place of occurrence of the external cause
CPT/HCPCS: 80048; 80053; 81001; 85025; 87081; 87086; 97110; 97112; 97116; 97150; 97163; 97167; 97530; 97535